=== PATIENT | female | born 1960 | race Caucasian/White ===

== ENCOUNTER 2016-09-03 15:44 | Emergency (ER) | payer OTHER ==
[~2016-09-03] VITALS: Ht 193 cm; Wt 115.0 kg
[2016-09-03 15:45] VITALS: BP 126/74; PULSE 98; RESP 15; TEMP 98.2; O2SAT 98
[2016-09-03] MEDS ORDERED: TETANUS/DIPHTHERIA TOXOID ADULT 0.5 ML VIAL IM ONE (16:30)
[2016-09-03] MEDS ORDERED: BUPIVACAINE HCL PF 0.5% 10 ML VIAL INFIL ONE (16:30)
[2016-09-03] MEDS ORDERED: LIDOCAINE HCL 1% 50 ML VIAL INFIL ONE (16:30)
--- NOTE | 2016-09-03 16:31 | PD ---
HPI Chief Complaint: Laceration/Skin Injury Time Seen by Provider: 16:27 Travel History International Travel<30 days: No Contact w/Intl Traveler<30days: No Traveled to known affect area: No History of Present Illness HPI 55-year-old female presents to the emergency department with complaint of a laceration to the distal aspect of her right third finger from a table leaf falling on her finger. Does not know tetanus status. Denies paresthesias, loss of sensation, decreased range of motion to the affected finger. Has applied pressure and a gauze wrap to control bleeding. Does not take any medications to alleviate her symptoms. Allergies to morphine. Has no other medical complaints. No modifying factors or associated signs and symptoms. PFSH Past Medical History Diabetes: Yes (METFORMIN 1100 09/03/16) ?: Not Social History Tobacco Use: No Allergies-Medications (Allergen,Severity, Reaction): Coded Allergies: Morphine (Verified Allergy, Unknown, 09/03/16) Reported Meds & Prescriptions Reported Meds & Active Scripts Active Lortab (Hydrocodone-Acetaminophen) 5-325 Mg Tab 1 Tab PO Q4H PRN Review of Systems Except as stated in HPI: all other systems reviewed are Neg Physical Exam Narrative GENERAL: Well-nourished, well-developed female patient, in no acute distress SKIN: Warm and dry. Medial aspect of distal right third finger with laceration that does not involve the nailbed; bleeding controlled; finger with full range of motion and sensory intact; less than 3 second cap refill; good opposition. HEAD: Atraumatic. Normocephalic. EYES: Pupils equal and round. No scleral icterus. No injection or drainage. ENT: Mucosa pink and moist. Airway patent. NECK: Trachea midline. CARDIOVASCULAR: Regular rate. RESPIRATORY: No accessory muscle use. GASTROINTESTINAL: Obese. MUSCULOSKELETAL: No obvious deformities. No clubbing. No cyanosis. No edema. NEUROLOGICAL: Awake and alert. Oriented 3. No obvious cranial nerve deficits. Motor grossly within normal limits. Normal speech. PSYCHIATRIC: Appropriate mood and affect; insight and judgment normal. Data Data Last Documented VS Vital Signs Date Time Temp Pulse Resp B/P Pulse Ox O2 Delivery O2 Flow Rate FiO2 09/03/16 15:45 98.2 98 15 126/74 98 Orders Finger (Aln7omy) (09/03/16 ) Tetanus/Diphtheria Tox Adult (Tetanus/Di (09/03/16 16:30) Bupivacaine Pf 0.5% Inj (Marcaine Pf 0.5 (09/03/16 16:30) Lidocaine 1% Inj (50 Ml) (Xylocaine 1% I (09/03/16 16:30) MDM Medical Decision Making Medical Screen Exam Complete: Yes Emergency Medical Condition: Yes Medical Record Reviewed: Yes Differential Diagnosis Laceration, contusion, crush injury, finger fracture Narrative Course 55-year-old female with a laceration to the distal aspect of her right third finger. Laceration is secondary to crush injury from a table leaf. Tetanus updated in the ER. Right third finger x-ray ordered. See my procedure note for laceration repair. Keflex, ibuprofen, Lortab prescribed for home. Wound care provided. [place] finger split provided for support. Instructed patient to return to the emergency department or follow-up with primary care provider in 7-10 days for suture removal. Patient verbalizes understanding and agreement with treatment plan. Patient is medically cleared and stable for discharge. Discussed reasons to return to the emergency department. Instructed patient to follow up with primary care provider. Patient agrees with treatment plan. The patients vital signs are stable and the patient is stable for outpatient follow-up and treatment. Patient discharged home, stable and in no acute distress. Procedures Procedure Narrative LACERATION LOCATION: Distal aspect of right third finger to the medial aspect at the fingernail; no finger nail involvement LENGTH: 1-1/2 cm NUMBER OF STITCHES/TORRI: 4 simple interrupted sutures REPAIR: The area of the laceration was prepped with Betadine and sterilely draped. The finger was digitally blocked with 1% lidocaine and 0.5% bupivacaine. The wound was copiously irrigated and explored without evidence of foreign body, tendon injury or neurovascular injury. The wound was closed using 4-0 Prolene. This was a single layer repair. A sterile dressing was applied. The patient was advised to keep the dressing clean and dry. Patient tolerated the procedure well. Diagnosis Primary Impression: Laceration of finger of right hand Qualified Code: S61.219A - Laceration of finger of right hand, initial encounter Referrals: Primary Care Physician Patient Instructions: Care For Your Stitches (ED), Finger Laceration (ED), General Instructions Additional Instructions: Antibiotics as prescribed Keep area clean and dry Limit right middle finger activity to decrease risk of sutures coming undone Ibuprofen or Tylenol as instructed and nausea for pain and inflammation Ice pack to area as needed to decrease pain Return to the emergency department or follow-up with primary care provider in 7- 10 days for suture removal Follow up with primary care provider within 2-4 days Return to the emergency department immediately with worsening of symptoms, particularly if reddened streaks up or down the affected extremity from the suture site, fever, numbness/tingling in the affected extremity, loss of sensation in the affected extremity, severe swelling of the affected Med/Other Pt SpecificInfo: Prescription(s) given Scripts Cephalexin (Keflex)500 Mg [id number] Mg PO Q8H 7 Days Ref 0 Prov:Taryn Mar 09/03/16 Ibuprofen 800 Mg [id number] Mg PO Q6HR PRN (PAIN) #30 TAB Ref 0 Prov:Taryn Mar 09/03/16 Hydrocodone-Acetaminophen (Lortab)5-325 Mg Tab1 Tab PO Q4H PRN (PAIN) #10 TAB Ref 0 Prov:Bel oRmano MD 09/03/16 Disposition: 01 DISCHARGE HOME Condition: Stable Taryn Mar Sep 03, 2016 16:31
--- NOTE | 2016-09-03 16:51 | RADRPT ---
EXAM DATE/TIME: 09/03/2016 16:42 [facility] COMPARISON: No previous studies available for comparison. INDICATIONS : 3rd digit caught in between table laceration to distal phalanx. MEDICAL HISTORY : None. SURGICAL HISTORY : None. ENCOUNTER: Initial ACUITY: 1 day PAIN SCORE: 0/10 LOCATION: Right 3rd digit FINDINGS: Examination of the third digit of the right hand demonstrates no evidence of fracture or dislocation. No radiopaque foreign bodies are seen. The soft tissues are intact. CONCLUSION: The osseous structures of the 3rd digit are grossly intact. Dennis Parks MD on September 03, 2016 at 16:49 Board Certified Radiologist. This report was verified electronically.
[2016-09-03] MEDS ORDERED: HYDR-3533 PO ×2 (17:20→17:22)
[2016-09-03] MEDS ORDERED: IBUP800T23 PO (17:37)
[2016-09-03] MEDS ORDERED: CEPH-460 PO (17:37)
== END 2016-09-03 18:17 | disposition home or self-care (01) ==
LOC: NEPK 15:44
DX: S61.212A Laceration without foreign body of right middle finger without damage to nail, initial encounter (principal); Z23 Encounter for immunization; W20.8XXA Other cause of strike by thrown, projected or falling object, initial encounter; Y93.9 Activity, unspecified; Y92.9 Unspecified place or not applicable
CPT/HCPCS: 12001; 73140; 90471; 90714